=== PATIENT | female | born 1965 | race Caucasian/White ===

== ENCOUNTER 2020-01-13 18:59 | Emergency (ER) | payer OTHER ==
[2020-01-13] MEDS ORDERED: IBUPROFEN 400 MG TAB ONE (19:38)
[2020-01-13] MEDS ORDERED: IBUPROFEN 200 MG TAB PO ONE (19:38)
--- NOTE | 2020-01-13 20:07 | ER ---
Nurse's Notes [facility] Name: Daily Plascencia Age: 54 yrs Sex: Female : 1965 Arrival Date: 01/13/2020 Time: 19:03 Bed 24 Private MD: Dirk Santiago B Diagnosis: Sprain of tibiofibular ligament of right ankle;Sprain of foot Presentation: 01/12 19:05 Chief complaint: Patient states: R ankle pain and swelling after stepping in a hole 40 ll1 min [employer]. Coronavirus screen: Client denies travel out of the [place] in the last 14 days. At this time, the client does not indicate any symptoms associated with coronavirus-19. Ebola Screen: Patient denies travel to an Ebola-affected area in the 21 days before illness onset. Initial Sepsis Screen: Does the patient meet any 2 criteria? No. Patient's initial sepsis screen is negative. Does the patient have a suspected source of infection? Yes: Bone or joint infection. Risk Assessment: Do you want to hurt yourself or someone else? Patient reports no desire to harm self or others. Onset of symptoms was January 13, 2020. 19:05 Method Of Arrival: Wheelchair ll1 19:05 Acuity: JEFFREY 4 ll1 HANDLE SEWER: 19:20 LMP N/A - Post-menopause ca1 Historical: - Allergies: 19:07 No Known Allergies; ll1 - PMHx: 19:07 Hypertension; ll1 - Immunization history:: Flu vaccine is not up to date. - Social history:: Smoking status: Patient denies any tobacco usage or history of. - Family history:: not pertinent. - Hospitalizations: : No recent hospitalization is reported. Screenin:19 Abuse screen: Denies threats or abuse. Denies injuries from another. Nutritional ca1 screening: No deficits noted. Tuberculosis screening: No symptoms or risk factors identified. Fall Risk Fall in past 12 months (25 points). Assessment: 19:19 General: Appears in no apparent distress. comfortable, Behavior is calm, cooperative, ca1 appropriate for age. Pain: Complains of pain in right foot and anterior aspect of right ankle Pain currently is 4 out of 10 on a pain scale. Pain began 1 hour ago. Neuro: Level of Consciousness is awake, alert, obeys commands, Oriented to person, place, time, situation. Derm: Skin is intact, is healthy with good turgor, Skin is pink, warm \T\ dry. Musculoskeletal: Circulation, motion, and sensation intact. Capillary refill < 3 seconds, Range of motion: limited in right ankle Swelling present in dorsum of right foot. 20:16 Reassessment: Patient appears in no apparent distress at this time. Patient is alert, ca1 oriented x 3, equal unlabored respirations, skin warm/dry/pink. Vital Signs: 19:05 BP 136 / 87; Pulse 81; Resp 16; Temp 98.1; Pulse Ox 99% ; Weight 76.2 kg; Height 5 ft. ll1 6 in. (167.64 cm); Pain 5/10; 20:29 BP 129 / 81; Pulse 79; Resp 16 S; Pulse Ox 100% on R/A; ca1 19:05 Body Mass Index 27.12 (76.20 kg, 167.64 cm) ll1 ED Course: 19:03 Patient arrived in ED. ag5 19:03 Dirk Santiago MD is Private Physician. ag5 19:06 Triage completed. ll1 19:07 Arm band placed on Patient placed in an exam room, on a stretcher. ll1 19:09 Kathleen Alston, THOM is Primary Nurse. ca1 19:14 Jaylen Sandoval MD is Attending Physician. ildefonso 19:19 Patient has correct armband on for positive identification. Bed in low position. Call ca1 light in reach. Side rails up X 1. Pulse ox on. NIBP on. 19:49 Ankle Right 3 View XRAY In Process Unspecified. EDMS 19:49 Foot Right 3 View XRAY In Process Unspecified. EDMS 20:00 No provider procedures requiring assistance completed. Patient did not have IV access ca1 during this emergency room visit. 3D boot applied to right foot. 20:05 Dirk Santiago MD is Referral Physician. ildefonso 20:05 Gómez Mcdonald MD is Referral Physician. [facility] Administered Medications: 19:26 Drug: Motrin 600 mg Route: PO; ca1 20:00 Follow up: Response: No adverse reaction; Pain is decreased ca1 Outcome: 20:06 Discharge ordered by . ildefonso 20:29 Discharged to home via wheelchair, with significant other. ca1 20:29 Condition: stable 20:29 Discharge instructions given to patient, Instructed on discharge instructions, follow up and referral plans. no drinking with medication, no driving heavy equipment, medication usage, Demonstrated understanding of instructions, follow-up care, medications, Prescriptions given X 2. 20:30 Patient left the ED. ca1 Signatures: Dispatcher [employer] Jaylen Nunez MD MD cha Acob, Cheryl RN RN ca1 Alexandra Huertas ag5 Ayden Gonzalez RN RN ll1
--- NOTE | 2020-01-13 20:07 | EDPHYS ---
Physician Documentation [facility] Name: Daily Plascencia Age: 54 yrs Sex: Female : 1965 Arrival Date: 01/13/2020 Time: 19:03 Bed 24 Private MD: Dirk Santiago B ED Physician Jaylen Sandoval HPI: 01/12 19:56 This 54 yrs old Female presents to ER via Wheelchair with complaints of Ankle ildefonso Injury. 19:56 The patient presents with decreased range of motion, an injury, pain. The complaints ildefonso affect the right ankle, right ankle, lateral aspect of right foot, anterior aspect of right ankle and dorsum of right foot. 19:57 Onset: The symptoms/episode began/occurred just prior to arrival. Context: The problem ildefonso was sustained outdoors, resulted from a mis-step by the patient. Associated signs and symptoms: The patient has no apparent associated signs or symptoms. The patient presents with decreased range of motion, pain, that is acute. The complaints affect the right foot, right lateral malleolus and dorsum of right foot. [employer]: 19:20 LMP N/A - Post-menopause ca1 Historical: - Allergies: 19:07 No Known Allergies; ll1 - PMHx: 19:07 Hypertension; ll1 - Immunization history:: Flu vaccine is not up to date. - Social history:: Smoking status: Patient denies any tobacco usage or history of. - Family history:: not pertinent. - Hospitalizations: : No recent hospitalization is reported. ROS: 19:57 Constitutional: Negative for fever, chills, and weight loss, Eyes: Negative for injury, ildefonso pain, redness, and discharge, ENT: Negative for injury, pain, and discharge, Neck: Negative for injury, pain, and swelling, Cardiovascular: Negative for chest pain, palpitations, and edema, Respiratory: Negative for shortness of breath, cough, wheezing, and pleuritic chest pain, Abdomen/GI: Negative for abdominal pain, nausea, vomiting, diarrhea, and constipation, Back: Negative for injury and pain, : Negative for injury, bleeding, discharge, and swelling, Skin: Negative for injury, rash, and discoloration, Neuro: Negative for headache, weakness, numbness, tingling, and seizure, Psych: Negative for depression, anxiety, suicide ideation, homicidal ideation, and hallucinations, Allergy/Immunology: Negative for hives, rash, and allergies, Endocrine: Negative for neck swelling, polydipsia, polyuria, polyphagia, and marked weight changes, Hematologic/Lymphatic: Negative for swollen nodes, abnormal bleeding, and unusual bruising. 19:57 MS/extremity: Positive for decreased range of motion, pain, swelling, of the right lateral malleolus. Exam: 19:57 Constitutional: This is a well developed, well nourished patient who is awake, alert, ildefonso and in no acute distress. Head/Face: Normocephalic, atraumatic. Eyes: Pupils equal round and reactive to light, extra-ocular motions intact. Lids and lashes normal. Conjunctiva and sclera are non-icteric and not injected. Cornea within normal limits. Periorbital areas with no swelling, redness, or edema. ENT: Nares patent. No nasal discharge, no septal abnormalities noted. Tympanic membranes are normal and external auditory canals are clear. Oropharynx with no redness, swelling, or masses, exudates, or evidence of obstruction, uvula midline. Mucous membranes moist. Neck: Trachea midline, no thyromegaly or masses palpated, and no cervical lymphadenopathy. Supple, full range of motion without nuchal rigidity, or vertebral point tenderness. No Meningismus. Chest/axilla: Normal chest wall appearance and motion. Nontender with no deformity. No lesions are appreciated. Cardiovascular: Regular rate and rhythm with a normal S1 and S2. No gallops, murmurs, or rubs. Normal PMI, no JVD. No pulse deficits. Respiratory: Lungs have equal breath sounds bilaterally, clear to auscultation and percussion. No rales, rhonchi or wheezes noted. No increased work of breathing, no retractions or nasal flaring. Abdomen/GI: Soft, non-tender, with normal bowel sounds. No distension or tympany. No guarding or rebound. No evidence of tenderness throughout. Back: No spinal tenderness. No costovertebral tenderness. Full range of motion. Skin: Warm, dry with normal turgor. Normal color with no rashes, no lesions, and no evidence of cellulitis. Neuro: Awake and alert, GCS 15, oriented to person, place, time, and situation. Cranial nerves II-XII grossly intact. Motor strength 5/5 in all extremities. Sensory grossly intact. Cerebellar exam normal. Normal gait. Psych: Awake, alert, with orientation to person, place and time. Behavior, mood, and affect are within normal limits. 19:57 Musculoskeletal/extremity: Extremities: decreased ROM, pain, swelling, tenderness, ROM: limited active range of motion, limited passive range of motion, Circulation is intact in all extremities. Sensation intact. Compartment Syndrome exam of affected extremity: is normal. Joints: pain at rest, painful range of motion, Weight bearing: able to fully bear weight, Tendon exam: specific tendon testing normal through active and passive range of motion DVT Exam: No signs of deep vein thrombosis. negative Homans' sign noted on exam, no appreciated bluish discoloration, no erythema, no increased warmth, pain, swelling, tenderness. Vital Signs: 19:05 BP 136 / 87; Pulse 81; Resp 16; Temp 98.1; Pulse Ox 99% ; Weight 76.2 kg; Height 5 ft. ll1 6 in. (167.64 cm); Pain 5/10; 20:29 BP 129 / 81; Pulse 79; Resp 16 S; Pulse Ox 100% on R/A; ca1 19:05 Body Mass Index 27.12 (76.20 kg, 167.64 cm) ll1 MDM: 19:14 Patient medically screened. [facility] 20:04 Differential diagnosis: fracture, sprain, arthritis, gout. Data reviewed: vital signs, [facility] nurses notes, radiologic studies. Data interpreted: environmental services lead: not applicable for this patient encounter. rate is 81 beats/min, rhythm is regular, Pulse oximetry: on 99L(s) per nasal canula, is 99 %. Test interpretation: by ED physician or midlevel provider: plain radiologic studies. Counseling: I had a detailed discussion with the patient and/or guardian regarding: the historical points, exam findings, and any diagnostic results supporting the discharge/admit diagnosis, radiology results, the need for outpatient follow up, for definitive care, a orthopedic surgeon. 01/12 19:20 Order name: Ankle Right 3 View XRAY [facility] 01/12 19:23 Order name: Foot Right 3 View XRAY [facility] 01/12 19:20 Order name: Ice pack; Complete Time: 19:23 [facility] 01/12 19:56 Order name: Walking boot; Complete Time: 20:16 [facility] Administered Medications: 19:26 Drug: Motrin 600 mg Route: PO; ca1 20:00 Follow up: Response: No adverse reaction; Pain is decreased ca1 Disposition: 01/13/20 20:06 Discharged to Home. Impression: Sprain of tibiofibular ligament of right ankle, Sprain of foot. - Condition is Stable. - Discharge Instructions: Ankle Sprain, Foot Sprain, Ankle Sprain, Miig-[id number], Ankle Pain, Foot Pain. - Prescriptions for Ibuprofen 600 mg Oral Tablet - take 1 tablet by ORAL route every 6 hours As needed take with food; 20 tablet. Tylenol- Codeine #3 300-30 mg Oral Tablet - take 2 tablets by ORAL route every 6 hours As needed; 20 tablet. - Medication Reconciliation Form, Thank You Letter, Antibiotic Education, Prescription Opioid Use form. - Follow up: Dirk Santiago MD; When: 2 - 3 days; Reason: Recheck today's complaints, Continuance of care, Re-evaluation by your physician. Follow up: Gómez Mcdonald MD; When: 2 - 3 days; Reason: Recheck today's complaints, Re-evaluation by your physician. - Problem is new. - Symptoms have improved. Signatures: Dispatcher [employer] EDJaylen Roberts MD MD cha Acob, Cheryl, RN RN ca1 Ayden Gonzalez RN RN ll1 Corrections: (The following items were deleted from the chart) 20:30 20:06 01/13/2020 20:06 Discharged to Home. Impression: Sprain of tibiofibular ligament ca1 of right ankle; Sprain of foot. Condition is Stable. Forms are Medication Reconciliation Form, Thank You Letter, Antibiotic Education, Prescription Opioid Use. Follow up: Dirk Santiago; When: 2 - 3 days; Reason: Recheck today's complaints, Continuance of care, Re-evaluation by your physician. Follow up: Gómez Mcdonald; When: 2 - 3 days; Reason: Recheck today's complaints, Re-evaluation by your physician. Problem is new. Symptoms have improved. ildefonso
--- NOTE | 2020-01-13 20:10 | RAD REPORT ---
EXAM DESCRIPTION: RAD - Ankle Right 3 View - 01/13/2020 7:53 pm CLINICAL HISTORY: PAIN COMPARISON: No comparisons FINDINGS: No acute fracture or dislocation is seen. Small plantar calcaneal spur.
--- NOTE | 2020-01-13 20:10 | RAD REPORT ---
EXAM DESCRIPTION: RAD - Foot Right 3 View - 01/13/2020 7:52 pm CLINICAL HISTORY: PAIN COMPARISON: No comparisons FINDINGS: No acute fracture dislocation evident. Small plantar calcaneal spur.
[2020-01-14 05:14] VITALS: TEMP 98.1
[2020-01-14 05:16] VITALS: BP 129/81; O2SAT 100
== END 2020-01-13 20:30 | disposition home or self-care (01) ==
LOC: ER 18:59
DX: S93.431A Sprain of tibiofibular ligament of right ankle, initial encounter (principal); S93.601A Unspecified sprain of right foot, initial encounter; X58.XXXA Exposure to other specified factors, initial encounter; Y93.01 Activity, walking, marching and hiking; Y92.9 Unspecified place or not applicable; I10 Essential (primary) hypertension
CPT/HCPCS: 99284